=== PATIENT | female | born 1940 | race Two or more races ===

== ENCOUNTER → 2025-03-20 | Outpatient (BNVA) | payer MEDICAID, SELFPAY | END | disposition home or self-care (01) | PROVIDERS: PCP Nurse Practitioner Family; Referring Provider Nurse Practitioner Family; Visit Provider Nurse Practitioner Family | DX: Z00.00 Encounter for general adult medical examination without abnormal findings (principal); E11.65 Type 2 diabetes mellitus with hyperglycemia; R01.1 Cardiac murmur, unspecified; R51.9 Headache, unspecified; R06.02 Shortness of breath; R60.9 Edema, unspecified; Z79.84 Long term (current) use of oral hypoglycemic drugs; I25.2 Old myocardial infarction; Z95.1 Presence of aortocoronary bypass graft; I48.91 Unspecified atrial fibrillation; I83.813 Varicose veins of bilateral lower extremities with pain; G81.91 Hemiplegia, unspecified affecting right dominant side; B35.2 Tinea manuum; B35.3 Tinea pedis; B35.1 Tinea unguium; Z28.21 Immunization not carried out because of patient refusal | CPT/HCPCS: 83036; 93005; 99215 ==

== ENCOUNTER → 2025-03-21 | Outpatient (CLI) | payer MEDICAID, SELFPAY ==
--- NOTE | 2025-03-21 10:45 | XR_ITS ---
EXAMINATION: PA lateral chest 2 views TECHNIQUE: Upright PA lateral chest 2 views Date and time: March 21, 2025, 10:55 a.m. INDICATIONS: Hypertension history, history heart surgery 1 month ago with shortness of breath. FINDINGS: Moderate enlargement left ventricle Mild to moderate vascular congestion Suspicious for septal edema at the lung bases No lobar pneumonia IMPRESSION: Mild heart failure
== END | disposition home or self-care (01) ==
PROVIDERS: PCP Nurse Practitioner Family; Referring Provider Nurse Practitioner Family; Visit Provider Nurse Practitioner Family
DX: I50.9 Heart failure, unspecified (principal)
CPT/HCPCS: 71046

== ENCOUNTER 2025-03-23 09:09 | Emergency (ER) | payer MEDICAID, SELFPAY ==
--- NOTE | 2025-03-23 09:34 | XR_ITS ---
EXAMINATION: AP chest single view TECHNIQUE: AP portable upright chest single view Date and time: March 23, 2025, 10:30 a.m., comparison March 21, 2025 INDICATIONS: Coughing shortness of breath beginning 2 days ago FINDINGS: Suspicious for early pneumonia left base Mild enlargement cardiac contour Mild vascular congestion. Prominent osteopenia IMPRESSION: Suspicious for early pneumonia left base
--- NOTE | 2025-03-23 09:34 | EKG_ITS ---
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
[2025-03-23 09:37] VITALS: BP 150/81; PULSE 73; RESP 16; TEMP 37.2; O2SAT 97; BMI 27.3
[2025-03-23 09:48] VITALS: PULSE 71
[2025-03-23] MEDS: MECLIZINE HCL 25 MG TABLET PO (10:13)
[2025-03-23] MEDS: SODIUM CHLORIDE 0.9% 1000 ML 1,000 ML 125 ML IV (10:13)
[2025-03-23 10:40] LABS: Basophils # (Auto) 0.1 Thou/mm3 (0.0-0.2); Basophils % (Auto) 1 % (0-2.5); Eosinophils # (Auto) 0.2 Thou/mm3 (0.0-0.5); Eosinophils % (Auto) 3 % (0-10); Hematocrit 45.0 % (36.0-46.0); Hemoglobin 14.7 g/dL (12.0-16.0); Immature Granulocytes Auto 0.01 Thou/mm3 (0.00-0.00); Lymphocytes # (Auto) 1.3 Thou/mm3 (1.0-4.8); Lymphocytes % (Auto) 18 % (10-50); Mean Corpuscular HGB Conc 32.7 g/dl (31.0-37.0); Mean Corpuscular Hemoglobin 29.2 pg (25.0-35.0); Mean Corpuscular Volume 89 fL (80-100); Monocytes # (Auto) 0.6 Thou/mm3 (0.0-0.8); Monocytes % (Auto) 8 % (0-12); Neutrophils # (Auto) 5.0 Thou/mm3 (1.8-7.7); Neutrophils % (Auto) 70 % (37-80); Nucleated Red Blood Cell # 0.00 Thou/mm3 (0.00-0.00); Nucleated Red Blood Cell % 0 /100 WBC (0); Platelet Count 225 Thou/mm3 (140-440); RDW Standard Deviation 43.3 fL (36.4-46.3); Red Blood Count 5.04 Miln/mm3 (4.00-5.20); White Blood Count 7.1 Thou/mm3 (3.6-11.0)
[2025-03-23 10:46] LABS: INR 1.0 (0.9-1.3); Partial Thromboplastin Time 28.8 Seconds (22.0-36.0); Prothrombin Time 10.8 Seconds (9.0-12.2)
[2025-03-23 10:48] LABS: Alanine Aminotransferase 11 U/L (10-49); Albumin, Serum 4.8 gm/dL (3.4-4.8); Albumin/Globulin Ratio 1.4 (1.2-2.2); Alkaline Phosphatase 131 U/L (46-116); Anion Gap 13 (7-16); Aspartate Amino Transferase 25 U/L (0-34); BUN/Creatinine Ratio 16 Ratio (12-20); Bilirubin,Total 1.4 mg/dL (0.3-1.2); Blood Urea Nitrogen 14 mg/dL (9-23); Calcium 10.4 mg/dL (8.3-10.6); Calcium (Corrected) 10.4 mg/dL (8.5-10.1); Carbon Dioxide 27.0 mMol/L (20.0-31.0); Chloride 104 mMol/L (98-107); Creatinine (Component) 0.9 mg/dL (0.6-1.3); Estimated Creatinine Clearance 36.1 mL/min (>60); Globulin 3.5 gm/dL (2.3-3.5); Glucose 55 mg/dL (74-106); Osmolality,Calculated 285 (275-295); Potassium 3.9 mMol/L (3.4-5.1); Sodium 144 mMol/L (136-145); Total Protein 8.3 gm/dL (5.7-8.2); Troponin I 0.029 ng/mL (0.0-0.045); eGFR > 60 See Note
--- NOTE | 2025-03-23 11:22 | EDNOTE_ITS ---
ED Dizzyness RME/HPI General Chief Complaint: Dizziness Stated Complaint: DIZZINESS, NO FEELING IN L) FOOT X 1 WK Time Seen by Provider: 03/23/25 09:14 Arrival date/time: 03/23/25 09:09 Limitations: no limitations RME / HPI RME / HPI Narrative: 85 year old female with history of [place], CAD s/p PCI, hypertension, diabetes presents to the ED for evaluation of dizziness today. Described dizziness as swaying and feeling unsteady that is aggravated with head movements and minimally improved with remaining still. Additionally complains of feeling very fatigued and body aches. Denies fevers, chills, chest pain, cough, shortness of breath, abdominal pain, n/v/d, or urinary symptoms. Related Data Previous Rx's ?Medication ?Instructions ?Recorded insulin glargine 100 unit/mL 10 unit (0.1 mL) subcut Q DAY 4 03/20/25 subcutaneous solution (Lantus weeks #10 mL U-100 Insulin) insulin syr/ndl U100 half marty #100 ea 03/22/25 0.5mL 31 gauge x 15/64 meclizine 12.5 mg tablet 12.5 mg PO TID DIZZINESS #20 tabs 03/23/25 amlodipine 5 mg tablet 5 mg PO QDAY #90 tabs amoxicillin 875 mg-potassium 1 tab PO BID 7 days #14 t abs 03/26/25 clavulanate 125 mg tablet atorvastatin 80 mg tablet (Lipitor) 80 mg PO QPM #90 t abs 03/26/25 blood-glucose sensor (Dexcom G7 #3 ea 03/26/25 Sensor device) clopidogrel 75 mg tablet 75 mg PO QDAY #90 tabs 03/26 dapagliflozin propanediol 10 mg 10 mg PO QAM #90 tabs 03/26/25 tablet (Farxiga) doxycycline monohydrate 100 mg 100 mg PO BID 7 days #1 4 caps 03/26/25 capsule hydrochlorothiazide 12.5 mg tablet 12.5 mg PO QAM #30 tabs 03/26/25 losartan 50 mg tablet 50 mg PO QDAY 90 days #90 ta bs 03/26/25 metformin 500 mg tablet 500 mg PO BID 90 days #180 t abs 03/26/25 Allergies Allergy/AdvReac Type Severity Reaction Status Date / Time No Known Allergies Allergy Verified 03/26/25 10:03 Review of Systems Review of Systems Systems Reviewed: All systems reviewed, normal except as documented Past Medical History Past Medical History CARDIAC: Positive Myocardial Infarction and Hypertension ENDOCRINE: Positive Diabetes Mellitus Type 2 Surgical History SURGICAL: Positive Cardiac Surgery Social History SMOKING STATUS: Never smoker ED Exam General Limitations: Present no limitations General appearance: Present alert and in no apparent distress Head Head exam: Present atraumatic Eye Eye exam: Present normal appearance, PERRL and EOMI ENT ENT exam: Present normal oropharynx, mucous membranes moist and other (Right TM mildly erythematous, left TM normal ) Neck Neck exam: Present normal inspection, full ROM and trachea midline Chest Chest inspection: Present normal inspection and symmetric chest wall rise Respiratory Respiratory exam: Present normal lung sounds bilaterally Cardiovascular Cardiovascular exam: Present regular rate, normal rhythm, normal heart sounds and systolic murmur (3/6) Abdominal Exam Abdominal exam: Present soft and normal bowel sounds Extremities Exam Extremities exam: Present normal inspection, full ROM and pedal edema (BLE) Back Exam Back exam: Present normal inspection and full ROM Neurological Exam Neurological exam: Present alert, oriented X3 and CN II-XII intact Psychiatric Psychiatric exam: Present normal affect and normal mood Skin Skin exam: Present warm, dry, intact and normal color Course Quality Measures none Orders Category Date Time Status Tavern Car Attendant NOW Care 03/23/25 09:34 Completed Continuous Pulse Oximetry NOW Care 03/23/25 09:34 Completed EKG (ED ONLY) *Do not use* NOW Care 03/23/25 09:34 Completed Insert IV NOW Care 03/23/25 09:34 Completed MRI Screening NOW Care 03/23/25 09:[address] head/brain wo con Stat Exams 03/23/25 12:47 Completed EKG (ED Only) Stat Exams 03/23/25 09:34 Draft XR chest 1V portable Stat Exams 03/23/25 09:34 Completed CBC Stat Lab 03/23/25 10:07 Completed Comprehensive Metabolic Panel Stat Lab 03/23/25 10:07 Completed Partial Thromboplastin Time Stat Lab 03/23/25 10:07 Completed Prothrombin Time with INR Stat Lab 03/23/25 10:07 Completed Troponin I Stat Lab 03/23/25 10:07 Completed Urinalysis Stat Lab 03/23/25 12:18 Completed Meclizine HCl [Antivert] Med 03/23/25 09:34 Discontinued 25 mg PO X1 ONE Sodium Chloride 0.9% 1000 ml [Ns] 1,000 ml Med 03/23/25 09:34 Discontinued IV 125 mls/hr cloNIDine HCL [Catapres] Med 03/23/25 14:00 Discontinued 0.1 mg PO X1 ONE Vital Signs Vital signs: Vital Signs Temperature 98.9 F 03/23/25 09:37 Pulse Rate 73 03/23/25 09:37 Respiratory Rate 16 03/23/25 09:37 Blood Pressure 150/81 H 03/23/25 09:37 Pulse Oximetry (%) 97 03/23/25 09:37 Oxygen Delivery Method Room Air 03/23/25 09:37 Pulse ox is 97% on room air which is adequate. Dizziness Patient data External records reviewed:: [facility] previous records Clinical information provided by:: patient Social determinants that could affect healthcare access:: none Patient has the following chronic illnesses:: [place], CAD s/p PCI, hypertension, diabetes How is presenting disease/condition affected by chronic disease/condition?: exacerbated by Evaluation data The following diagnostics were reviewed and interpreted by me:: EKG tracing(s) (EKG @ 09:45 AM. Atrial fibrillation, rate 71, no STEMI. ) Lab and/or radiology exams considered but not ordered:: None Interpretation Summary: Ordering Physician: Neto Maloney MD Date of Service: 03/23/25 Procedure(s): XR chest 1V portable Accession Number(s): [id number] cc: Neto Maloney MD; Garcia Aparicio MD; Kimberlee Cruz ([facility] EXAMINATION: AP chest single view TECHNIQUE: AP portable upright chest single view Date and time: March 23, 2025, 10:30 a.m., comparison March 21, 2025 INDICATIONS: Coughing shortness of breath beginning 2 days ago FINDINGS: Suspicious for early pneumonia left base Mild enlargement cardiac contour Mild vascular congestion. Prominent osteopenia IMPRESSION: Suspicious for early pneumonia left base Dictated By: Garcia Aparicio MD Signed By: <Electronically signed by Garcia Aparicio MD in OV> 03/23/25 1146 Ordering Physician: Neto Maloney MD Date of Service: 03/23/25 Procedure(s): CT head/brain wo con Accession Number(s): [id number] cc: Neto Maloney MD; Garcia Aparicio MD; Kimberlee Cruz ([facility] Examination: CT brain head without contrast. 2-D sagittal coronal reconstructions Date and time of exam: March 23, 2025, 1311 hours INDICATIONS: Onset dizziness today CTDI: vol (mGy): 45.6 DLP: (mGycm): 880 Technique: Multiple CT axial sections of the brain have been obtained, 5 mm slice thickness. Contrast has not been administered. 2-D sagittal, coronal reconstructions have been obtained Low dose protocols were performed. One or more of the following dose reduction techniques were used; automated exposure control, adjustment of the mA and/or KV according to patient size, use of iterative reconstruction technique. Findings: No significant ventricular enlargement. Focal areas of low density in the right frontal lobe left parietal lobe right occipital lobe consistent with infarcts these may be old but clinical correlation advised Intra-axial or extra-axial hemorrhage density is not seen. No mass effect or midline shift Basal cisterns are not remarkable. Fourth ventricle is midline. Cranial vault intact. 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 Dictated By: Garcia Aparicio MD Signed By: <Electronically signed by Garcia Aparicio MD in OV> 03/23/25 1321 Medications / Prescriptions Medications or Prescriptions considered but not ordered:: None Medication administrations:: Medication Administration History Discontinued Medications Clonidine (Clonidine Hcl 0.1 Mg Tablet) 0.1 mg PO X1 ONE Stop: 03/23/25 14:01 Last Admin: 03/23/25 14:10 Dose: 0.1 mg Documented By: EF Sodium Chloride (Ns) 1,000 mls @ 125 mls/hr IV .Q8H ONE Stop: 03/23/25 17:33 Last Admin: 03/23/25 10:13 Dose: 125 mls/hr Documented By: EF Meclizine HCl (Meclizine Hcl 25 Mg Tablet) 25 mg PO X1 ONE Stop: 03/23/25 09:35 Last Admin: 03/23/25 10:13 Dose: 25 mg Documented By: EF See above Consultations Consultation(s) initiated? (list below): No Diagnosis Most likely diagnosis given after review of the tests above:: Dizziness Right middle ear infection Hypertension Admission Indicated Admission indicated?: not indicated Admission Request Was there a request for admission?: No Disposition Plan Disposition Plan: Discharge Discharge Attestation Discharge Attestation: The patient and all family members were given an opportunity to ask questions and understood the discharge instructions. Discharge instructions specifically effects, indications for sooner follow up or return to the emergency department, and the expected course of current diagnosis. Patient condition: Stable Discharge Plan Plan Patient Disposition: HOME (Self Care) Patient condition on transfer: Stable Prescriptions/Referrals Prescriptions/Med Rec: New meclizine 12.5 mg tablet 12.5 mg PO TID MDD 3 Qty: 20 0RF No Action losartan 50 mg tablet 50 mg PO QDAY 90 Days Qty: 90 0RF amoxicillin-pot clavulanate 875-125 mg tablet 1 tab PO BID 7 Days Qty: 14 0RF hydrochlorothiazide 12.5 mg tablet 12.5 mg PO QAM Qty: 30 0RF amlodipine 5 mg tablet 5 mg PO QDAY Qty: 90 0RF atorvastatin [Lipitor] 80 mg tablet 80 mg PO QPM Qty: 90 0RF clopidogrel 75 mg tablet 75 mg PO QDAY Qty: 90 0RF (DME) Dexcom G7 Sensor Device See Rx Instructions .ROUTE .MEDSUPPLY Qty: 3 6RF Rx Instructions: Dispense 30 day supplies doxycycline monohydrate 100 mg capsule 100 mg PO BID 7 Days Qty: 14 0RF metformin 500 mg tablet 500 mg PO BID 90 Days Qty: 180 0RF dapagliflozin propanediol [Farxiga] 10 mg tablet 10 mg PO QAM Qty: 90 0RF insulin glargine [Lantus U-100 Insulin] 100 unit/mL solution 10 unit subcut QDAY 28 Days Qty: 10 0RF (DME) insulin syr/ndl U100 half marty 0.5 mL 31 gauge x 15/64 syringe See Rx Instructions .Route Qty: 100 1RF Rx Instructions: Administered insulin once a day Referrals: Anthony [facility] STORE CUSTODIAN,Kimberlee Emerson STORE CUSTODIAN [Primary Care Provider, Family Practice] - In 1 week Problem List Clinical Impression: Dizziness, Right middle ear infection, Essential hypertension Patient/Caregiver Discharge Instructions Discharge Activity: activity as tolerated Education Materials: Controlling High Blood Pressure, Common Middle Ear Problems, Blood Pressure Check Steps, ED Dizziness, Uncertain Cause Additional Instructions: Follow-up with your primary care doctor in 3 days. Ask your doctor for referrals to Ears Nose and Throat physician as well as to Neurology because of the Dizziness. Take medications as prescribed. Continue your usual medications. Print Language: Polish Stand Alone Forms: [employer] Award Info., Patient Portal Info Letter
[2025-03-23 12:24] LABS: Collection Type, Urine Clean Catch; Squamous Epithelial Cell,Urine 0 /hpf (0-5)
[2025-03-23 12:30] LABS: Bilirubin,Urine Negative (Negative); Blood,Urine Negative (Negative); Clarity,Urine Clear (Clear/Hazy); Color,Urine Lt-Yellow (Lt Yel-Yel); Glucose, Urine Negative (Negative); Ketones,Urine Negative (Negative); Leukocyte Esterase,Urine Positive (Negative); Nitrite,Urine Negative (Negative); PH,Urine 7.0 (5.0-7.0); Protein,Urine Negative (Neg - Trace); RBC,Urine 2 /hpf (0-3); Specific Gravity,Urine 1.010 (1.001-1.035); Urobilinogen,Urine Negative mg/dL (0.0-1.0); WBC,Urine 5 /hpf (0-5)
[2025-03-23 12:42] VITALS: BP 191/90; PULSE 63; RESP 19; TEMP 36.6; O2SAT 96
--- NOTE | 2025-03-23 12:47 | XR_ITS ---
Examination: CT brain head without contrast. 2-D sagittal coronal reconstructions Date and time of exam: March 23, 2025, 1311 hours INDICATIONS: Onset dizziness today CTDI: vol (mGy): 45.6 DLP: (mGycm): 880 Technique: Multiple CT axial sections of the brain have been obtained, 5 mm slice thickness. Contrast has not been administered. 2-D sagittal, coronal reconstructions have been obtained Low dose protocols were performed. One or more of the following dose reduction techniques were used; automated exposure control, adjustment of the mA and/or KV according to patient size, use of iterative reconstruction technique. Findings: No significant ventricular enlargement. Focal areas of low density in the right frontal lobe left parietal lobe right occipital lobe consistent with infarcts these may be old but clinical correlation advised Intra-axial or extra-axial hemorrhage density is not seen. No mass effect or midline shift Basal cisterns are not remarkable. Fourth ventricle is midline. Cranial vault intact. 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
[2025-03-23 14:10] VITALS: BP 194/96; PULSE 85
[2025-03-23 15:02] VITALS: BP 168/89; PULSE 66; RESP 16; O2SAT 96
--- NOTE | 2025-04-01 10:38 | PD.EDADULT ---
ED General RME/HPI General Chief complaint: Dizziness Stated complaint: DIZZINESS, NO FEELING IN L) FOOT X 1 WK Time Seen by Provider: 03/23/25 09:14 Arrival date/time: 03/23/25 09:09 Limitations: no limitations RME / HPI RME / HPI narrative: 85 year old female with history of [place], CAD s/p PCI, hypertension, diabetes presents to the ED for evaluation of dizziness today. Described dizziness as swaying and feeling unsteady that is aggravated with head movements and minimally improved with remaining still. Additionally complains of feeling very fatigued and body aches. Denies fevers, chills, chest pain, cough, shortness of breath, abdominal pain, n/v/d, or urinary symptoms. Onset (ago): day(s) Location: head Radiation: non-radiation Severity: severe Severity scale (1-10): 8 Quality: other Consistency: constant Relieving factors: none Exacerbating factors: none Associated symptoms: denies other symptoms Treatments prior to arrival: none Related Data Previous Rx's ?Medication ?Instructions ?Recorded insulin glargine 100 unit/mL 10 unit (0.1 mL) subcut QDAY 4 03/20/25 subcutaneous solution (Lantus weeks #10 mL U-100 Insulin) insulin syr/ndl U100 half marty #100 ea 03/22/25 0.5mL 31 gauge x 15/64 meclizine 12.5 mg tablet 12.5 mg PO TID DIZZINESS #20 tabs 03/23/25 amlodipine 5 mg tablet 5 mg PO QDAY #90 tabs 03/26/25 amoxicillin 875 mg-potassium 1 tab PO BID 7 days #14 tabs 03/26/25 clavulanate 125 mg tablet atorvastatin 80 mg tablet (Lipitor) 80 mg PO QPM #90 tabs 03/26/25 blood-glucose sensor (Dexcom G7 #3 ea 03/26/25 Sensor device) clopidogrel 75 mg tablet 75 mg PO QDAY #90 tabs 03/26/25 dapagliflozin propanediol 10 mg 10 mg PO QAM #90 tabs 03/26/25 tablet (Farxiga) doxycycline monohydrate 100 mg 100 mg PO BID 7 days #14 caps 03/26/25 capsule hydrochlorothiazide 12.5 mg tablet 12.5 mg PO QAM #30 tabs 03/26/25 losartan 50 mg tablet 50 mg PO QDAY 90 days #90 tabs 03/26/25 metformin 500 mg tablet 500 mg PO BID 90 days #180 tabs 03/26/25 Allergies Allergy/AdvReac Type Severity Reaction Status Date / Time No Known Allergies Allergy Verified 03/26/25 10:03 Review of Systems Review of Systems Systems Reviewed: All systems reviewed, normal except as documented Past Medical History Past Medical History CARDIAC: Positive Myocardial Infarction and Hypertension ENDOCRINE: Positive Diabetes Mellitus Type 2 Surgical History SURGICAL: Positive Cardiac Surgery Social History SMOKING STATUS: Never smoker ED Exam General Limitations: Present no limitations General appearance: Present alert and in no apparent distress Head Head exam: Present atraumatic Eye Eye exam: Present normal appearance, PERRL and EOMI ENT ENT exam: Present normal oropharynx, mucous membranes moist and other (right TM erythematous and retracted); Absent TM's normal bilaterally Neck Neck exam: Present normal inspection, full ROM and trachea midline Chest Chest inspection: Present normal inspection and symmetric chest wall rise Respiratory Respiratory exam: Present normal lung sounds bilaterally Cardiovascular Cardiovascular exam: Present regular rate, normal rhythm and normal heart sounds Abdominal Exam Abdominal exam: Present soft and normal bowel sounds Extremities Exam Extremities exam: Present normal inspection and full ROM Back Exam Back exam: Present normal inspection and full ROM Neurological Exam Neurological exam: Present alert, oriented X3 and CN II-XII intact Psychiatric Psychiatric exam: Present normal affect and normal mood Skin Skin exam: Present warm, dry, intact and normal color Course Quality Measures none Orders Category Date Time Status Food Server NOW Care 03/23/25 09:34 Completed Continuous Pulse Oximetry NOW Care 03/23/25 09:34 Completed EKG (ED ONLY) *Do not use* NOW Care 03/23/25 09:34 Completed Insert IV NOW Care 03/23/25 09:34 Completed MRI Screening NOW Care 03/23/25 09:[address] head/brain wo con Stat Exams 03/23/25 12:47 Completed EKG (ED Only) Stat Exams 03/23/25 09:34 Draft XR chest 1V portable Stat Exams 03/23/25 09:34 Completed CBC Stat Lab 03/23/25 10:07 Completed Comprehensive Metabolic Panel Stat Lab 03/23/25 10:07 Completed Partial Thromboplastin Time Stat Lab 03/23/25 10:07 Completed Prothrombin Time with INR Stat Lab 03/23/25 10:07 Completed Troponin I Stat Lab 03/23/25 10:07 Completed Urinalysis Stat Lab 03/23/25 12:18 Completed Meclizine HCl [Antivert] Med 03/23/25 09:34 Discontinued 25 mg PO X1 ONE Sodium Chloride 0.9% 1000 ml [Ns] 1,000 ml Med 03/23/25 09:34 Discontinued IV 125 mls/hr cloNIDine HCL [Catapres] Med 03/23/25 14:00 Discontinued 0.1 mg PO X1 ONE Vital Signs Vital signs: Vital Signs Temperature 98.9 F 03/23/25 09:37 Pulse Rate 73 03/23/25 09:37 Respiratory Rate 16 03/23/25 09:37 Blood Pressure 150/81 H 03/23/25 09:37 Pulse Oximetry (%) 97 03/23/25 09:37 Oxygen Delivery Method Room Air 03/23/25 09:37 Discharge Plan Plan Patient Disposition: HOME (Self Care) Patient condition on transfer: Stable Prescriptions/Referrals Prescriptions/Med Rec: New meclizine 12.5 mg tablet 12.5 mg PO TID MDD 3 Qty: 20 0RF No Action losartan 50 mg tablet 50 mg PO QDAY 90 Days Qty: 90 0RF amoxicillin-pot clavulanate 875-125 mg tablet 1 tab PO BID 7 Days Qty: 14 0RF hydrochlorothiazide 12.5 mg tablet 12.5 mg PO QAM Qty: 30 0RF amlodipine 5 mg tablet 5 mg PO QDAY Qty: 90 0RF atorvastatin [Lipitor] 80 mg tablet 80 mg PO QPM Qty: 90 0RF clopidogrel 75 mg tablet 75 mg PO QDAY Qty: 90 0RF (DME) Dexcom G7 Sensor Device See Rx Instructions .ROUTE .MEDSUPPLY Qty: 3 6RF Rx Instructions: Dispense 30 day supplies doxycycline monohydrate 100 mg capsule 100 mg PO BID 7 Days Qty: 14 0RF metformin 500 mg tablet 500 mg PO BID 90 Days Qty: 180 0RF dapagliflozin propanediol [Farxiga] 10 mg tablet 10 mg PO QAM Qty: 90 0RF insulin glargine [Lantus U-100 Insulin] 100 unit/mL solution 10 unit subcut QDAY 28 Days Qty: 10 0RF (DME) insulin syr/ndl U100 half marty 0.5 mL 31 gauge x 15/64 syringe See Rx Instructions .Route Qty: 100 1RF Rx Instructions: Administered insulin once a day Referrals: Anthony [facility] PASSENGER SERVICE SUPERVISOR,Kimberlee Emerson PASSENGER SERVICE SUPERVISOR [Primary Care Provider, Family Practice] - In 1 week Problem List Clinical Impression: Dizziness, Right middle ear infection, Essential hypertension Patient/Caregiver Discharge Instructions Discharge Activity: activity as tolerated Education Materials: Controlling High Blood Pressure, Common Middle Ear Problems, Blood Pressure Check Steps, ED Dizziness, Uncertain Cause Additional Instructions: Follow-up with your primary care doctor in 3 days. Ask your doctor for referrals to Ears Nose and Throat physician as well as to Neurology because of the Dizziness. Take medications as prescribed. Continue your usual medications. Print Language: Cymro Stand Alone Forms: [employer] Award Info., Patient Portal Info Letter MDM Clinical Information Provided by: patient Medical Records reviewed [facility] Medication Administration(s) Medication Administration History Discontinued Medications Clonidine (Clonidine Hcl 0.1 Mg Tablet) 0.1 mg PO X1 ONE Stop: 03/23/25 14:01 Last Admin: 03/23/25 14:10 Dose: 0.1 mg Documented By: CHRIST Sodium Chloride (Ns) 1,000 mls @ 125 mls/hr IV .Q8H ONE Stop: 03/23/25 17:33 Last Admin: 03/23/25 10:13 Dose: 125 mls/hr Documented By: CHRIST Meclizine HCl (Meclizine Hcl 25 Mg Tablet) 25 mg PO X1 ONE Stop: 03/23/25 09:35 Last Admin: 03/23/25 10:13 Dose: 25 mg Documented By: CHRIST
== END 2025-03-23 15:24 | disposition home or self-care (01) ==
PROVIDERS: Emergency Provider Family Medicine; PCP Nurse Practitioner Family
DX: H66.91 Otitis media, unspecified, right ear (principal); I10 Essential (primary) hypertension; E11.9 Type 2 diabetes mellitus without complications; I25.10 Atherosclerotic heart disease of native coronary artery without angina pectoris; Z79.02 Long term (current) use of antithrombotics/antiplatelets; Z79.4 Long term (current) use of insulin; Z79.84 Long term (current) use of oral hypoglycemic drugs; Z95.5 Presence of coronary angioplasty implant and graft; I25.2 Old myocardial infarction
CPT/HCPCS: 36415; 70450; 71045; 80053; 81001; 84484; 85025; 85610; 85730; 93005; 99284; J7030; A9270

== ENCOUNTER → 2025-03-26 | Outpatient (BNVA) | payer MEDICAID, SELFPAY | END | disposition home or self-care (01) | PROVIDERS: PCP Nurse Practitioner Family; Referring Provider Nurse Practitioner Family; Visit Provider Nurse Practitioner Family | DX: Z09 Encounter for follow-up examination after completed treatment for conditions other than malignant neoplasm (principal); R51.9 Headache, unspecified; E11.65 Type 2 diabetes mellitus with hyperglycemia; R94.8 Abnormal results of function studies of other organs and systems; J18.9 Pneumonia, unspecified organism; G89.29 Other chronic pain; Z79.4 Long term (current) use of insulin; I50.9 Heart failure, unspecified; H61.23 Impacted cerumen, bilateral | CPT/HCPCS: 82948; 96372; 99214; A4216; J0696 ==

== ENCOUNTER → 2025-04-02 | Outpatient (CLI) | payer MEDICAID, SELFPAY ==
--- NOTE | 2025-04-02 11:23 | XR_ITS ---
EXAMINATION: PA lateral chest 2 views TECHNIQUE: Upright PA lateral chest 2 views Date and time: April 02, 2025, 1145 hours, comparison March 23, 2025 INDICATIONS: Shortness of breath today FINDINGS: Mild prominence cardiac contour No pneumonia or pulmonary edema Prominent osteopenia Moderate hyperexpansion IMPRESSION: Moderate hyperexpansion. Mild enlargement cardiac contour No pneumonia or pulmonary edema
== END | disposition home or self-care (01) ==
PROVIDERS: PCP Nurse Practitioner Family; Referring Provider Nurse Practitioner Family; Visit Provider Nurse Practitioner Family
DX: I51.7 Cardiomegaly (principal); R91.8 Other nonspecific abnormal finding of lung field
CPT/HCPCS: 71046

== ENCOUNTER → 2025-04-09 | Outpatient (BNVA) | payer MEDICAID, SELFPAY | END | disposition home or self-care (01) | PROVIDERS: PCP Nurse Practitioner Family; Referring Provider Nurse Practitioner Family; Visit Provider Nurse Practitioner Family | DX: Z00.01 Encounter for general adult medical examination with abnormal findings (principal); R51.9 Headache, unspecified; E11.65 Type 2 diabetes mellitus with hyperglycemia; J18.9 Pneumonia, unspecified organism; I50.9 Heart failure, unspecified; G81.91 Hemiplegia, unspecified affecting right dominant side; R94.8 Abnormal results of function studies of other organs and systems; Z71.2 Person consulting for explanation of examination or test findings; E66.3 Overweight; Z68.27 Body mass index [BMI] 27.0-27.9, adult; Z28.21 Immunization not carried out because of patient refusal; I25.2 Old myocardial infarction; R80.9 Proteinuria, unspecified; I48.91 Unspecified atrial fibrillation | CPT/HCPCS: 99173; 99215 ==

== ENCOUNTER → 2025-04-13 | Outpatient (CLI) | payer MEDICAID, SELFPAY | END | disposition home or self-care (01) | PROVIDERS: PCP Nurse Practitioner Family; Referring Provider Nurse Practitioner Family; Visit Provider Surgery | DX: I96 Gangrene, not elsewhere classified (principal); I87.332 Chronic venous hypertension (idiopathic) with ulcer and inflammation of left lower extremity; E11.622 Type 2 diabetes mellitus with other skin ulcer; E11.52 Type 2 diabetes mellitus with diabetic peripheral angiopathy with gangrene; L97.822 Non-pressure chronic ulcer of other part of left lower leg with fat layer exposed; I10 Essential (primary) hypertension; Z79.84 Long term (current) use of oral hypoglycemic drugs; R60.0 Localized edema | CPT/HCPCS: 11042; 99213; A9270; G0463 ==

== ENCOUNTER → 2025-04-17 | Outpatient (BNVA) | payer MEDICAID, SELFPAY | END | disposition home or self-care (01) | PROVIDERS: PCP Nurse Practitioner Family; Referring Provider Nurse Practitioner Family; Visit Provider Nurse Practitioner Family | DX: Z71.2 Person consulting for explanation of examination or test findings (principal); E11.65 Type 2 diabetes mellitus with hyperglycemia; Z79.4 Long term (current) use of insulin; Z28.21 Immunization not carried out because of patient refusal; I25.2 Old myocardial infarction; E78.5 Hyperlipidemia, unspecified; E03.8 Other specified hypothyroidism; F43.0 Acute stress reaction; E66.3 Overweight; Z68.27 Body mass index [BMI] 27.0-27.9, adult | CPT/HCPCS: 99214 ==

== ENCOUNTER → 2025-04-20 | Outpatient (CLI) | payer MEDICAID, SELFPAY | END | disposition home or self-care (01) | LOC: SWHD 07:59 | PROVIDERS: PCP Nurse Practitioner Family; Referring Provider Nurse Practitioner Family; Visit Provider Physician Assistant | DX: I96 Gangrene, not elsewhere classified (principal); I87.332 Chronic venous hypertension (idiopathic) with ulcer and inflammation of left lower extremity; E11.622 Type 2 diabetes mellitus with other skin ulcer; L97.822 Non-pressure chronic ulcer of other part of left lower leg with fat layer exposed; E11.52 Type 2 diabetes mellitus with diabetic peripheral angiopathy with gangrene; I10 Essential (primary) hypertension; Z79.84 Long term (current) use of oral hypoglycemic drugs; R60.0 Localized edema | CPT/HCPCS: 99213; A9270; G0463 ==